=== PATIENT | female | born 1965 | race Caucasian/White ===

== ENCOUNTER → 2022-10-21 07:13 | Outpatient (CLI) | payer OTHER | END | disposition home or self-care (01) | LOC: LAB 07:13 | PROVIDERS: ATTEND Orthopaedic Surgery | DX: E55.9 Vitamin D deficiency, unspecified (principal); M85.9 Disorder of bone density and structure, unspecified; E56.1 Deficiency of vitamin K ==

== ENCOUNTER 2024-09-28 09:00 | Outpatient (CLI) | payer OTHER | END 2024-09-28 09:10 | disposition home or self-care (01) | LOC: LAB 09:00 | PROVIDERS: ATTEND Orthopaedic Surgery | DX: E55.9 Vitamin D deficiency, unspecified (principal); M85.9 Disorder of bone density and structure, unspecified; E56.1 Deficiency of vitamin K ==

== ENCOUNTER 2024-10-30 13:30 | Outpatient (CLI) | payer OTHER | END 2024-10-30 13:34 | disposition home or self-care (01) | LOC: RAD 13:30 | PROVIDERS: ATTEND Orthopaedic Surgery | DX: M54.50 Low back pain, unspecified (principal); M25.551 Pain in right hip; M25.552 Pain in left hip ==